=== PATIENT | female | born 1985 | race African-American/Black ===

== ENCOUNTER 2024-02-26 12:06 | Emergency (ER) | payer MEDICAID ==
[~2024-02-26] VITALS: Ht 157.5 cm; Wt 150.0 kg
[2024-02-26 12:20] VITALS: O2SAT 99
[2024-02-26] MEDS ORDERED: IBUP-2028 MT (14:23)
[2024-02-26] MEDS ORDERED: TOPUD PO (14:23)
[2024-02-26] MEDS ORDERED: METH-653 MT (14:23)
[2024-02-26 14:35] VITALS: BP 136/84; PULSE 76; RESP 18; TEMP 98.7
[2024-02-26] MEDS: IBUPROFEN 400MG TABLET PO ONE (14:35)
[2024-02-26] MEDS: ACETAMINOPHEN 325MG TABLET PO ONE (14:35)
[2024-02-26] MEDS: METHOCARBAMOL 750MG TABLET PO SCH (14:35)
== END 2024-02-26 14:38 | disposition home or self-care (01) ==
LOC: ER 12:29
DX: R51.9 Headache, unspecified (principal); Z88.0 Allergy status to penicillin; V43.52XA Car driver injured in collision with other type car in traffic accident, initial encounter; Y93.89 Activity, other specified; Y92.89 Other specified places as the place of occurrence of the external cause; Y99.8 Other external cause status
CPT/HCPCS: 99284